=== PATIENT | female | born 1950 | race Two or more races ===

== ENCOUNTER 2023-08-04 14:12 | Inpatient (IN) | payer OTHER ==
[~2023-08-04] VITALS: Ht 152.4 cm; Wt 147.4 kg
[2023-08-04] MEDS ORDERED: NORVASC5 MG (14:29)
[2023-08-04] MEDS ORDERED: LYRICA150 MG (14:30)
[2023-08-04] MEDS ORDERED: CRESTOR10 MG (14:30)
[2023-08-04] MEDS ORDERED: METFORMIN HCL1000 M2 (14:30)
[2023-08-04] MEDS ORDERED: ZESTRIL10 M1 (14:30)
[2023-08-04 14:51] LABS: ABG PH 7.298 (7.35-7.45)
[2023-08-04 14:52] LABS: ABG PO2 38.8 mmHg (80-100); ABG pCO2 77.1 mmHg (35-45); BASE EXCESS 7.2 mmol/l; BICARBONATE 36.9 mmol/l (23-25); SaO2 67.8 %; Tco2 39.2 mmol/l; allen test SATISFACTORY; o2 21 %; puncture site RADIAL RIGHT
[2023-08-04 17:02] LABS: HEMATOCRIT 31.6 % (36.0-45.00); HEMOGLOBIN 9.9 g/dL (12.0-15.00); MEAN CELL VOLUME 81.9 fL (80.00-100.00); MEAN CORPUSCULAR HEMOGLOBIN 25.7 pg (27.00-32.0); MEAN CORPUSCULAR HGB CONC 31.4 g/dl (32.0-36.0); PLATELET COUNT 137 K/uL (150-450); RED BLOOD COUNT 3.86 M/uL (4.00-6.00)
[2023-08-04 17:18] LABS: INR 0.98; PARTIAL THROMBOPLASTIN TIME 24.3 SECONDS (22.0-34.0); PROTHROMBIN TIME 10.3 SECONDS (9.0-11.5)
[2023-08-04 17:25] LABS: ALBUMIN 2.8 gm/dL (3.4-5.0); BILIRUBIN TOTAL 0.25 mg/dL (0.3-1.2); CALCIUM 8.9 mg/dL (8.5-10.1); CREATININE SERUM 1.96 mg/dL (0.55-1.02); GFR 25.07; GLOBULINA 3.6 G/DL (2.4-3.5); POTASSIUM 5.61 mEq/L (3.5-5.1); TOTAL PROTEIN 6.4 gm/dL (6.4-8.2)
[2023-08-04 18:53] LABS: ABG PH 7.238 (7.35-7.45); ABG PO2 254.4 mmHg (80-100); ABG pCO2 89.7 mmHg (35-45); BASE EXCESS 6.2 mmol/l; BICARBONATE 37.4 mmol/l (23-25); SaO2 99.8 %; Tco2 40.2 mmol/l
[2023-08-04 18:54] LABS: o2 100 %; puncture site RADIAL RIGHT
[2023-08-04] MEDS ORDERED: MEROPENEM 500 MG/VIAL VIAL IV SCH (20:26)
[2023-08-04] MEDS ORDERED: PANTOPRAZOLE SODIUM 40 MG/VIAL VIAL IV SCH (20:27)
[2023-08-04] MEDS ORDERED: ENOXAPARIN SODIUM 100 MG/ML SYRINGE SUBCUTANEO SCH (20:28)
[2023-08-04] MEDS ORDERED: ONDANSETRON HCL 4 MG in 0.9 % SODIUM CHLORIDE 50 ML IV PRN (20:30)
[2023-08-04] MEDS ORDERED: ACETAMINOPHEN 500 MG GEL..CAP PO PRN (20:30)
[2023-08-04] MEDS ORDERED: DEXTROSE 50 % IN WATER 0.5 G/ML DISP.SYRIN IV PRN (20:30)
[2023-08-04] MEDS ORDERED: VANCOMYCIN HCL 1,000 MG VIAL IV ONE (20:30)
[2023-08-04] MEDS ORDERED: INSULIN LISPRO 1,000 UNIT/10 ML UNITS SUBCUTANEO PRN (20:30)
[2023-08-04] MEDS ORDERED: IPRATROPIUM BROMIDE 0.5 MG/2.5 ML AMPUL.NEB IH SCH (20:39)
[2023-08-04] MEDS ORDERED: METHYLPREDNISOLONE SOD SUCC 125 MG VIAL IV ONE (20:45)
[2023-08-04] MEDS ORDERED: 0.9 % SODIUM CHLORIDE 500 ML IV ONE (20:45)
[2023-08-04 21:59] LABS: ABG PH 7.247 (7.35-7.45); ABG PO2 107.9 mmHg (80-100); ABG pCO2 85.9 mmHg (35-45); BASE EXCESS 5.8 mmol/l; SaO2 97.2 %
[2023-08-04 22:00] LABS: BICARBONATE 36.6 mmol/l (23-25); Tco2 39.2 mmol/l; allen test NO SATISFACTORY; o2 60 %; puncture site RADIAL RIGHT
[2023-08-04 22:27] LABS: MAGNESIUM 1.8 mg/dL (1.8-2.4); PHOSPHOROUS 5.2 mg/dL (2.5-4.9)
[2023-08-05 01:42] LABS: ABG PH 7.238 (7.35-7.45); ABG PO2 178.6 mmHg (80-100); ABG pCO2 84.2 mmHg (35-45)
[2023-08-05 01:43] LABS: BASE EXCESS 4.4 mmol/l; BICARBONATE 35.1 mmol/l (23-25); SaO2 99.3 %; Tco2 37.7 mmol/l; allen test SATISFACTORY; o2 50 %; puncture site RADIAL RIGHT
[2023-08-05] MEDS ORDERED: 0.9 % SODIUM CHLORIDE 1,000 ML IV SCH (02:30)
[2023-08-05] MEDS ORDERED: ASCORBIC ACID 500 MG TABLET PO SCH (09:00)
[2023-08-05] MEDS ORDERED: DEXAMETHASONE SODIUM PHOSPHATE 4 MG/ML VIAL IV SCH (09:00)
[2023-08-05] MEDS ORDERED: ZINC SULFATE 220 MG CAPSULE PO SCH (09:00)
[2023-08-05] MEDS ORDERED: ENOXAPARIN SODIUM 30 MG/0.3 ML SYRINGE SUBCUTANEO SCH (09:00)
[2023-08-05] MEDS ORDERED: MEROPENEM 500 MG/VIAL VIAL IV SCH (09:00)
[2023-08-05 10:10] LABS: ABG PH 7.233 (7.35-7.45)
[2023-08-05 10:11] LABS: ABG pCO2 80.6 mmHg (35-45); SaO2 78.6 %
[2023-08-05 10:12] LABS: BASE EXCESS 2.8 mmol/l; BICARBONATE 33.3 mmol/l (23-25); Tco2 35.7 mmol/l; allen test SATISFACTORY; o2 50 %; puncture site RADIAL RIGHT
[2023-08-05 10:14] LABS: ABG PO2 51.3 mmHg (80-100)
[2023-08-05] MEDS ORDERED: MIDAZOLAM HCL 2 MG/2 ML VIAL IV PUSH STA (11:06)
[2023-08-05] MEDS ORDERED: MIDAZOLAM HCL 50 MG in 0.9 % SODIUM CHLORIDE 50 ML IV SCH (11:15)
[2023-08-05] MEDS ORDERED: CHLORHEXIDINE GLUCONATE 15ML BRUSH KIT MM SCH (11:51)
[2023-08-05] MEDS ORDERED: POLYVINYL ALCOHOL 15 ML DROPS OP SCH (11:52)
[2023-08-05] MEDS ORDERED: REMDESIVIR 100 MG VIAL IV NR (12:09)
[2023-08-05 15:26] LABS: ABG PH 7.562 (7.35-7.45); ABG PO2 258.5 mmHg (80-100); ABG pCO2 30.1 mmHg (35-45)
[2023-08-05 15:27] LABS: BICARBONATE 26.5 mmol/l (23-25); Tco2 27.4 mmol/l; allen test SATISFACTORY; o2 100 %; puncture site RADIAL RIGHT
[2023-08-05 15:29] LABS: SaO2 99.9 %
[2023-08-05 15:47] LABS: ALBUMIN 2.7 gm/dL (3.4-5.0); BILIRUBIN TOTAL 0.48 mg/dL (0.3-1.2); CALCIUM 8.5 mg/dL (8.5-10.1); CREATININE SERUM 1.86 mg/dL (0.55-1.02); GFR 26.63; GLOBULINA 2.9 G/DL (2.4-3.5); TOTAL PROTEIN 5.6 gm/dL (6.4-8.2)
[2023-08-05 16:01] LABS: C-REACTIVE PROTEIN 1.54 MG/DL (0.00-0.29)
[2023-08-05 16:02] LABS: POTASSIUM 6.27 mEq/L (3.5-5.1)
[2023-08-05] MEDS ORDERED: LACTOBACILLUS ACIDOPHILUS 1 CAP CAP PO SCH (17:00)
[2023-08-05] MEDS ORDERED: SODIUM POLYSTYRENE SULFONATE 15 G/4 TSP TSP PO SCH (18:00)
[2023-08-05 18:23] LABS: RH POSITIVE
[2023-08-05] MEDS ORDERED: LACTULOSE 20 G/30 ML BLIST.PACK PO STA (19:05)
[2023-08-05] MEDS ORDERED: MELATONIN 5 MG TABLET PO SCH (21:00)
[2023-08-06 06:50] LABS: PH,URINE 5.5 (5.0-8.0); URINE APPEARANCE Turbid; URINE BILIRRUBIN Small (NEGATIVE); URINE BLOOD Moderate; URINE COLOR Dark Yellow; URINE GLUCOSE Negative (NEGATIVE); URINE LEUKOCYTE Moderate; URINE NITRATE Negative; URINE UROBILINOGEN 0.2 E.U./dl
[2023-08-06 07:03] LABS: URINE BACTERIA > 9821.5 uL (0.0-1933); URINE CRYSTALS FEW /HPF; URINE EPITHELIAL CELLS > 201.7 uL (0.0-38.8); URINE PROTEIN 100 (NEGATIVE); URINE RBC > 10558.9 uL (0.0-20.8); URINE WBC > 5548.3 uL (0.0-23.2); URINE YEAST MANY /hpf
[2023-08-06 07:18] LABS: ALBUMIN 2.7 gm/dL (3.4-5.0); BILIRUBIN TOTAL 0.42 mg/dL (0.3-1.2); CALCIUM 8.6 mg/dL (8.5-10.1); CREATININE SERUM 1.71 mg/dL (0.55-1.02); GFR 29.34; MAGNESIUM 1.8 mg/dL (1.8-2.4); PHOSPHOROUS 3.4 mg/dL (2.5-4.9); POTASSIUM 5.28 mEq/L (3.5-5.1); TOTAL PROTEIN 5.7 gm/dL (6.4-8.2)
[2023-08-06 07:19] LABS: C-REACTIVE PROTEIN 2.26 MG/DL (0.00-0.29)
[2023-08-06 08:04] LABS: HEMATOCRIT 29.9 % (36.0-45.00); HEMOGLOBIN 9.5 g/dL (12.0-15.00); MEAN CELL VOLUME 79.1 fL (80.00-100.00); MEAN CORPUSCULAR HEMOGLOBIN 25.2 pg (27.00-32.0); MEAN CORPUSCULAR HGB CONC 31.8 g/dl (32.0-36.0); PLATELET COUNT 148 K/uL (150-450); RED BLOOD COUNT 3.77 M/uL (4.00-6.00)
[2023-08-06 08:05] LABS: RED CELL DISTRIBUTION WIDTH 26.3 % (11.5-14.5)
[2023-08-06 08:28] LABS: MYCOPLASMA PNEUMONIAE IGM NON REACTIVE (NO REACTIVE)
[2023-08-06 10:13] LABS: ABG PH 7.442 (7.35-7.45); ABG pCO2 43.9 mmHg (35-45); BASE EXCESS 4.5 mmol/l; BICARBONATE 29.3 mmol/l (23-25); SaO2 99.6 %; Tco2 30.6 mmol/l; o2 60 %
[2023-08-06 10:14] LABS: allen test SATISFACTORY; puncture site RADIAL LEFT
[2023-08-06] MEDS ORDERED: REMDESIVIR 100 MG VIAL IV SCH (14:00)
[2023-08-06] MEDS ORDERED: FLUCONAZOLE IN NACL,ISO-OSM 200 MG/100 ML PIGGYBAG IV ONE (17:00)
[2023-08-07 06:52] LABS: ABG PO2 155.5 mmHg (80-100); ABG pCO2 40.9 mmHg (35-45)
[2023-08-07 06:53] LABS: BASE EXCESS 3.5 mmol/l; BICARBONATE 27.8 mmol/l (23-25); Tco2 29.1 mmol/l; o2 50 %
[2023-08-07 06:54] LABS: allen test SATISFACTORY; puncture site RADIAL RIGHT
[2023-08-07 06:57] LABS: SaO2 99.5 %
[2023-08-07 10:17] LABS: HEMOGLOBIN 9.8 g/dL (12.0-15.00); MEAN CORPUSCULAR HEMOGLOBIN 26.1 pg (27.00-32.0); MEAN CORPUSCULAR HGB CONC 32.6 g/dl (32.0-36.0); PLATELET COUNT 138 K/uL (150-450); RED BLOOD COUNT 3.75 M/uL (4.00-6.00)
[2023-08-07 10:21] LABS: RED CELL DISTRIBUTION WIDTH 26.5 % (11.5-14.5)
[2023-08-07 10:59] LABS: ALBUMIN 2.6 gm/dL (3.4-5.0); BILIRUBIN TOTAL 0.36 mg/dL (0.3-1.2); CALCIUM 8.3 mg/dL (8.5-10.1); CREATININE SERUM 1.19 mg/dL (0.55-1.02); GFR 44.59; GLOBULINA 2.9 G/DL (2.4-3.5); MAGNESIUM 1.6 mg/dL (1.8-2.4); POTASSIUM 4.11 mEq/L (3.5-5.1); TOTAL PROTEIN 5.5 gm/dL (6.4-8.2)
[2023-08-07 11:00] LABS: FERRITIN 124.4 NG/ML (8-252)
[2023-08-07] MEDS ORDERED: CHLORHEXIDINE GLUCONATE 120 ML BOTTLE TOP ONE (11:12)
[2023-08-07] MEDS ORDERED: FLUCONAZOLE IN NACL,ISO-OSM 2 MG/ML ML IV SCH (17:00)
[2023-08-07] MEDS ORDERED: ENOXAPARIN SODIUM 30 MG/0.3 ML SYRINGE SUBCUTANEO SCH (21:00)
[2023-08-08 06:35] LABS: ABG PH 7.442 (7.35-7.45); ABG PO2 68.4 mmHg (80-100); ABG pCO2 40.8 mmHg (35-45); BASE EXCESS 2.9 mmol/l; BICARBONATE 27.2 mmol/l (23-25); Tco2 28.5 mmol/l; o2 40 %; puncture site RADIAL LEFT
[2023-08-08 06:36] LABS: allen test SATISFACTORY
[2023-08-08 06:37] LABS: SaO2 94.3 %
[2023-08-09 08:16] LABS: ABG PH 7.419 (7.35-7.45); ABG PO2 146.4 mmHg (80-100); ABG pCO2 42.5 mmHg (35-45); BASE EXCESS 2.1 mmol/l; BICARBONATE 26.9 mmol/l (23-25); SaO2 99.3 %; Tco2 28.2 mmol/l
[2023-08-09 08:17] LABS: allen test SATISFACTORY; o2 45 %; puncture site RADIAL RIGHT
[2023-08-09 09:48] LABS: FERRITIN 160.2 NG/ML (8-252)
[2023-08-09] MEDS ORDERED: FLUCONAZOLE IN NACL,ISO-OSM 200 MG/100 ML PIGGYBAG IV SCH (17:00)
[2023-08-09] MEDS ORDERED: ENOXAPARIN SODIUM 100 MG/ML SYRINGE SUBCUTANEO SCH (21:00)
[2023-08-10 06:53] LABS: HEMATOCRIT 26.7 % (36.0-45.00); MEAN CELL VOLUME 78.4 fL (80.00-100.00); MEAN CORPUSCULAR HGB CONC 32.9 g/dl (32.0-36.0); PLATELET COUNT 139 K/uL (150-450); RED BLOOD COUNT 3.41 M/uL (4.00-6.00)
[2023-08-10 06:57] LABS: MEAN CORPUSCULAR HEMOGLOBIN 25.8 pg (27.00-32.0)
[2023-08-10 06:58] LABS: HEMOGLOBIN 8.8 g/dL (12.0-15.00)
[2023-08-10 07:06] LABS: PH,URINE 5.5 (5.0-8.0); URINE APPEARANCE Turbid; URINE BILIRRUBIN Negative (NEGATIVE); URINE BLOOD Large; URINE COLOR Yellow; URINE GLUCOSE Negative (NEGATIVE); URINE LEUKOCYTE Moderate; URINE NITRATE Negative; URINE PROTEIN Trace (NEGATIVE)
[2023-08-10 07:11] LABS: URINE BACTERIA 212.9 uL (0.0-1933); URINE EPITHELIAL CELLS 168.8 uL (0.0-38.8); URINE RBC 2777.9 uL (0.0-20.8); URINE WBC 1523.1 uL (0.0-23.2)
[2023-08-10 07:17] LABS: ALBUMIN 2.1 gm/dL (3.4-5.0); BILIRUBIN TOTAL 0.56 mg/dL (0.3-1.2); C-REACTIVE PROTEIN 0.44 MG/DL (0.00-0.29); CALCIUM 7.8 mg/dL (8.5-10.1); CREATININE SERUM 0.78 mg/dL (0.55-1.02); GFR 72.6; GLOBULINA 2.5 G/DL (2.4-3.5); MAGNESIUM 1.5 mg/dL (1.8-2.4); PHOSPHOROUS 2.8 mg/dL (2.5-4.9); POTASSIUM 3.23 mEq/L (3.5-5.1); TOTAL PROTEIN 4.6 gm/dL (6.4-8.2)
[2023-08-10 07:46] LABS: URINE CRYSTALS MANY /HPF; URINE YEAST MANY /hpf
[2023-08-10 08:28] LABS: ABG PH 7.409 (7.35-7.45); ABG PO2 63.6 mmHg (80-100); ABG pCO2 43.6 mmHg (35-45)
[2023-08-10 08:29] LABS: SaO2 92.3 %; Tco2 28.3 mmol/l; allen test SATISFACTORY; o2 50 %; puncture site RADIAL LEFT
[2023-08-10] MEDS ORDERED: FUROsemide 20 MG/2 ML VIAL IV SCH (16:15)
[2023-08-10] MEDS ORDERED: MAGNESIUM SULFATE/D5W 100 ML IV ONE (16:15)
[2023-08-10] MEDS ORDERED: POTASSIUM CHLORIDE 20MEQ/100ML H2O PB IV ONE (16:15)
[2023-08-11 04:37] LABS: ob NEGATIVE (NEGATIVE)
[2023-08-11] MEDS ORDERED: ALBUTEROL SULFATE 3 ML/2.5 MG AMPUL.NEB IH ONE (10:21)
[2023-08-11] MEDS ORDERED: RACEPINEPHRINE HCL 0.5 ML AMPUL IH ONE (10:21)
[2023-08-11 10:49] LABS: ABG PO2 100.1 mmHg (80-100); ABG pCO2 43.8 mmHg (35-45)
[2023-08-11 10:50] LABS: BASE EXCESS 0.7 mmol/l; SaO2 97.7 %; Tco2 27.3 mmol/l; allen test SATISFACTORY; puncture site RADIAL RIGHT
[2023-08-11 10:51] LABS: o2 40 %
[2023-08-11 12:25] LABS: ABG PH 7.358 (7.35-7.45); ABG PO2 84.7 mmHg (80-100); ABG pCO2 44.8 mmHg (35-45); BASE EXCESS -1.1 mmol/l; BICARBONATE 24.6 mmol/l (23-25); SaO2 95.8 %; allen test SATISFACTORY; o2 50 %; puncture site RADIAL RIGHT
[2023-08-12 02:06] LABS: HEMATOCRIT 40.6 % (36.0-45.00); MEAN CELL VOLUME 81.3 fL (80.00-100.00); MEAN CORPUSCULAR HGB CONC 32.8 g/dl (32.0-36.0); PLATELET COUNT 190 K/uL (150-450); RED BLOOD COUNT 4.99 M/uL (4.00-6.00)
[2023-08-12 02:07] LABS: HEMOGLOBIN 13.3 g/dL (12.0-15.00); MEAN CORPUSCULAR HEMOGLOBIN 26.6 pg (27.00-32.0); RED CELL DISTRIBUTION WIDTH 24.5 % (11.5-14.5)
[2023-08-12 07:56] LABS: ALBUMIN 2.6 gm/dL (3.4-5.0); BILIRUBIN TOTAL 0.93 mg/dL (0.3-1.2); CALCIUM 8.5 mg/dL (8.5-10.1); CREATININE SERUM 0.8 mg/dL (0.55-1.02); GFR 70.51; MAGNESIUM 1.6 mg/dL (1.8-2.4); PHOSPHOROUS 2.8 mg/dL (2.5-4.9); POTASSIUM 3.67 mEq/L (3.5-5.1); TOTAL PROTEIN 5.6 gm/dL (6.4-8.2)
[2023-08-12] MEDS ORDERED: MAGNESIUM SULFATE 1,000 MG in 0.9 % SODIUM CHLORIDE 50 ML IV ONE (18:15)
[2023-08-12] MEDS ORDERED: Pregabalin 50 MG CAPSULE PO SCH (21:00)
[2023-08-13] MEDS ORDERED: ONDANSETRON HCL 2 MG/ML VIAL IV ONE (06:30)
[2023-08-14 08:24] LABS: ALKALINE PHOSPHATASE 50 U/L (50-136); ALT/SGPT 16 U/L (12-78); AST/SGOT 11 U/L (15-37); BILIRUBIN TOTAL 0.77 mg/dL (0.3-1.2); BLOOD UREA NITROGEN 35 mg/dL (7-18); BUN CREA RATIO 52 (7.0-25.0); CALCIUM 7.7 mg/dL (8.5-10.1); CARBON DIOXIDE 26 mEq/L (21-32); CREATININE SERUM 0.67 mg/dL (0.55-1.02); GFR 86.52; GLOBULINA 2.3 G/DL (2.4-3.5); GLUCOSE FASTING 81 mg/dL (65-100); OSMOLALITY SERUM 303 MOSM/KG (275-295); PHOSPHOROUS 2.9 mg/dL (2.5-4.9); POTASSIUM 3.52 mEq/L (3.5-5.1); TOTAL PROTEIN 4.3 gm/dL (6.4-8.2)
[2023-08-14 08:25] LABS: ANION GAP 11 (10.0-20.0)
[2023-08-14 08:26] LABS: CHLORIDE 116 mmol/L (98-107); SODIUM 149 mmol/L (136-145)
[2023-08-14 11:45] LABS: HEMATOCRIT 36.9 % (36.0-45.00); HEMOGLOBIN 11.8 g/dL (12.0-15.00); MEAN CELL VOLUME 84.2 fL (80.00-100.00); MEAN CORPUSCULAR HGB CONC 32.1 g/dl (32.0-36.0); PLATELET COUNT 194 K/uL (150-450); RED BLOOD COUNT 4.38 M/uL (4.00-6.00); RED CELL DISTRIBUTION WIDTH 24.5 % (11.5-14.5)
[2023-08-14 15:18] LABS: C-REACTIVE PROTEIN < 0.29 MG/DL (0.00-0.29)
[2023-08-14] MEDS ORDERED: APIXABAN 5 MG TABLET PO SCH (21:00)
[2023-08-16 06:41] LABS: HEMATOCRIT 31.7 % (36.0-45.00); HEMOGLOBIN 10.5 g/dL (12.0-15.00); MEAN CELL VOLUME 83.6 fL (80.00-100.00); MEAN CORPUSCULAR HEMOGLOBIN 27.6 pg (27.00-32.0); PLATELET COUNT 177 K/uL (150-450); RED CELL DISTRIBUTION WIDTH 24.5 % (11.5-14.5)
[2023-08-16 07:55] LABS: ALBUMIN 1.9 gm/dL (3.4-5.0); BILIRUBIN TOTAL 0.74 mg/dL (0.3-1.2); CALCIUM 7.8 mg/dL (8.5-10.1); CREATININE SERUM 0.57 mg/dL (0.55-1.02); GFR 104.26; GLOBULINA 2.1 G/DL (2.4-3.5); MAGNESIUM 1.5 mg/dL (1.8-2.4); PHOSPHOROUS 2.2 mg/dL (2.5-4.9); POTASSIUM 3.42 mEq/L (3.5-5.1)
[2023-08-16] MEDS ORDERED: AMINO ACIDS/PROTEIN HYDROLYS 30 ML BLIST.PACK PO SCH (09:00)
[2023-08-16] MEDS ORDERED: ALBUMIN HUMAN 0.25GM/ML (50ML) VIAL IV SCH (09:00)
[2023-08-16] MEDS ORDERED: FUROsemide 40 MG/4 ML VIAL IV STA (20:38)
[2023-08-16] MEDS ORDERED: NITROGLYCERIN 0.4 MG TAB.SUBL SL SCH (20:45)
[2023-08-16] MEDS ORDERED: NITROGLYCERIN IN 5 % DEXTROSE 250 ML IV SCH (20:45)
[2023-08-16] MEDS ORDERED: POTASSIUM PHOS,M-BASIC-D-BASIC 18 MM in 0.9 % SODIUM CHLORIDE 250 ML IV ONE (21:00)
[2023-08-16] MEDS ORDERED: MAGNESIUM SULFATE 1,000 MG in 0.9 % SODIUM CHLORIDE 50 ML IV ONE (21:00)
[2023-08-16] MEDS ORDERED: FUROsemide 40 MG/4 ML VIAL IV SCH (21:00)
[2023-08-16 23:44] LABS: CKMB 1.4 NG/ML (0.5-3.6)
[2023-08-17 07:23] LABS: CKMB 1.5 NG/ML (0.5-3.6)
[2023-08-17 13:23] LABS: HEMATOCRIT 30.7 % (36.0-45.00); MEAN CELL VOLUME 83.6 fL (80.00-100.00); MEAN CORPUSCULAR HEMOGLOBIN 27.3 pg (27.00-32.0); MEAN CORPUSCULAR HGB CONC 32.7 g/dl (32.0-36.0); PLATELET COUNT 177 K/uL (150-450); RED BLOOD COUNT 3.68 M/uL (4.00-6.00); RED CELL DISTRIBUTION WIDTH 24.1 % (11.5-14.5)
[2023-08-17 13:50] LABS: INR 1.09; PARTIAL THROMBOPLASTIN TIME 31.6 SECONDS (22.0-34.0); PROTHROMBIN TIME 11.4 SECONDS (9.0-11.5)
[2023-08-17 13:51] LABS: CKMB 1.6 NG/ML (0.5-3.6)
[2023-08-17] MEDS ORDERED: FLUCONAZOLE IN NACL,ISO-OSM 200 MG/100 ML PIGGYBAG IV SCH (17:00)
[2023-08-18 07:03] LABS: BILIRUBIN TOTAL 0.61 mg/dL (0.3-1.2); CALCIUM 7.7 mg/dL (8.5-10.1); CREATININE SERUM 0.63 mg/dL (0.55-1.02); GFR 92.89; GLOBULINA 2.1 G/DL (2.4-3.5); POTASSIUM 3.35 mEq/L (3.5-5.1); TOTAL PROTEIN 4.1 gm/dL (6.4-8.2)
[2023-08-18 08:09] LABS: MAGNESIUM 1.3 mg/dL (1.8-2.4)
[2023-08-18] MEDS ORDERED: POTASSIUM CHLORIDE 20MEQ/100ML H2O PB IV ONE (15:15)
[2023-08-18] MEDS ORDERED: MAGNESIUM SULFATE IN WATER 4 GM/100 ML PIGGYBACK IV ONE (15:15)
[2023-08-18] MEDS ORDERED: DEXTROSE 5 % IN WATER 1,000 ML IV SCH (15:15)
[2023-08-19 08:16] LABS: HEMOGLOBIN 9.2 g/dL (12.0-15.00); MEAN CELL VOLUME 83.2 fL (80.00-100.00); MEAN CORPUSCULAR HEMOGLOBIN 27.5 pg (27.00-32.0); PLATELET COUNT 142 K/uL (150-450); RED BLOOD COUNT 3.36 M/uL (4.00-6.00); RED CELL DISTRIBUTION WIDTH 24.1 % (11.5-14.5)
[2023-08-19 08:45] LABS: BILIRUBIN TOTAL 0.65 mg/dL (0.3-1.2); CALCIUM 7.7 mg/dL (8.5-10.1); CREATININE SERUM 0.53 mg/dL (0.55-1.02); GFR 113.39; GLOBULINA 2.3 G/DL (2.4-3.5); MAGNESIUM 1.6 mg/dL (1.8-2.4); POTASSIUM 3.16 mEq/L (3.5-5.1); TOTAL PROTEIN 4.3 gm/dL (6.4-8.2)
[2023-08-19 08:54] LABS: PHOSPHOROUS 1.6 mg/dL (2.5-4.9)
[2023-08-19] MEDS ORDERED: ACETAZOLAMIDE 250 MG TABLET PO SCH (14:54)
[2023-08-19] MEDS ORDERED: SPIRONOLACTONE 25 MG TABLET PO SCH (14:54)
[2023-08-19] MEDS ORDERED: POTASSIUM CHLORIDE IN WATER 40 MEQ/100 ML PIGGYBAG IV SCH (15:00)
[2023-08-19] MEDS ORDERED: MAGNESIUM SULFATE IN WATER 50 ML IV ONE (15:15)
[2023-08-19] MEDS ORDERED: POTASSIUM PHOS,M-BASIC-D-BASIC 18 MM in 0.9 % SODIUM CHLORIDE 250 ML IV ONE (15:15)
[2023-08-19 20:49] LABS: PLEURAL FLUID APPEARANCE HAZY; PLEURAL FLUID COLOR YELLOW
[2023-08-19 21:05] LABS: TP PLEURAL FLUID 1.6 g/dl
[2023-08-19 21:39] LABS: MONONUCLEAR 94 %; POLYMORPHONUCLEAR 6 %
[2023-08-20] MEDS ORDERED: PANTOPRAZOLE SODIUM 40 MG TABLET.DR PO SCH (09:00)
[2023-08-20] MEDS ORDERED: MAGNESIUM SULFATE IN WATER 2 GM/50 ML PIGGYBAG IV ONE (14:30)
[2023-08-20] MEDS ORDERED: POTASSIUM PHOS,M-BASIC-D-BASIC 3 MM/ML VIAL IV ONE (14:30)
[2023-08-20] MEDS ORDERED: MAGNESIUM SULFATE 50% 1,000 MG/2 ML VIAL IV ONE (14:30)
[2023-08-20] MEDS ORDERED: POTASSIUM PHOS,M-BASIC-D-BASIC 3 MM/ML VIAL IV SCH (14:30)
[2023-08-21 07:38] LABS: ALBUMIN 1.9 gm/dL (3.4-5.0); BILIRUBIN TOTAL 0.5 mg/dL (0.3-1.2); CALCIUM 7.6 mg/dL (8.5-10.1); CREATININE SERUM 0.61 mg/dL (0.55-1.02); GFR 96.41; GLOBULINA 2.4 G/DL (2.4-3.5); POTASSIUM 3.5 mEq/L (3.5-5.1); TOTAL PROTEIN 4.3 gm/dL (6.4-8.2)
[2023-08-21] MEDS ORDERED: APIXABAN 5 MG TABLET PO SCH (21:00)
[2023-08-22] MEDS ORDERED: HYDROCODONE/CHLORPHEN P-STIREX 5 ML ML PO SCH (18:03)
[2023-08-22] MEDS ORDERED: LINEZOLID IN DEXTROSE 5% 300 ML IV SCH (18:04)
[2023-08-23 08:21] LABS: HEMATOCRIT 28.8 % (36.0-45.00); HEMOGLOBIN 9.2 g/dL (12.0-15.00); MEAN CELL VOLUME 83.8 fL (80.00-100.00); MEAN CORPUSCULAR HEMOGLOBIN 26.7 pg (27.00-32.0); MEAN CORPUSCULAR HGB CONC 31.9 g/dl (32.0-36.0); PLATELET COUNT 131 K/uL (150-450); RED BLOOD COUNT 3.44 M/uL (4.00-6.00); RED CELL DISTRIBUTION WIDTH 23.1 % (11.5-14.5)
[2023-08-23] MEDS ORDERED: AMINO ACIDS/PROTEIN HYDROLYS 30 ML BLIST.PACK PO SCH (09:00)
[2023-08-24 06:37] LABS: HEMATOCRIT 26.8 % (36.0-45.00); MEAN CORPUSCULAR HEMOGLOBIN 27.5 pg (27.00-32.0); MEAN CORPUSCULAR HGB CONC 33.1 g/dl (32.0-36.0); PLATELET COUNT 134 K/uL (150-450); RED BLOOD COUNT 3.23 M/uL (4.00-6.00); RED CELL DISTRIBUTION WIDTH 21.8 % (11.5-14.5)
[2023-08-24 06:42] LABS: HEMOGLOBIN 8.9 g/dL (12.0-15.00)
[2023-08-24 07:07] LABS: ALBUMIN 2.1 gm/dL (3.4-5.0); BILIRUBIN TOTAL 0.6 mg/dL (0.3-1.2); CALCIUM 8.6 mg/dL (8.5-10.1); CREATININE SERUM 0.75 mg/dL (0.55-1.02); GFR 75.96; GLOBULINA 2.9 G/DL (2.4-3.5); MAGNESIUM 1.6 mg/dL (1.8-2.4); PHOSPHOROUS 3.4 mg/dL (2.5-4.9)
[2023-08-24] MEDS ORDERED: MAGNESIUM SULFATE 1,000 MG in 0.9 % SODIUM CHLORIDE 50 ML IV ONE (20:30)
[2023-08-24] MEDS ORDERED: LINEZOLID 600 MG TABLET PO SCH (21:00)
[2023-08-25 07:33] LABS: HEMATOCRIT 27.4 % (36.0-45.00); HEMOGLOBIN 8.9 g/dL (12.0-15.00); MEAN CELL VOLUME 83.5 fL (80.00-100.00); MEAN CORPUSCULAR HEMOGLOBIN 27.1 pg (27.00-32.0); MEAN CORPUSCULAR HGB CONC 32.6 g/dl (32.0-36.0); PLATELET COUNT 140 K/uL (150-450); RED BLOOD COUNT 3.28 M/uL (4.00-6.00); RED CELL DISTRIBUTION WIDTH 21.3 % (11.5-14.5)
[2023-08-25 07:48] LABS: CALCIUM 8.9 mg/dL (8.5-10.1); CREATININE SERUM 0.7 mg/dL (0.55-1.02); GFR 82.25; MAGNESIUM 1.8 mg/dL (1.8-2.4); PHOSPHOROUS 3.6 mg/dL (2.5-4.9); POTASSIUM 4.28 mEq/L (3.5-5.1)
[2023-08-25 13:29] LABS: PH,URINE 7.5 (5.0-8.0); URINE APPEARANCE Clear; URINE BILIRRUBIN Negative (NEGATIVE); URINE COLOR Yellow; URINE GLUCOSE Negative (NEGATIVE); URINE LEUKOCYTE Moderate; URINE NITRATE Negative; URINE PROTEIN Negative (NEGATIVE); URINE UROBILINOGEN 0.2 E.U./dl
[2023-08-25 13:34] LABS: URINE RBC 124.3 uL (0.0-20.8); URINE WBC 103.2 uL (0.0-23.2)
[2023-08-25 14:35] LABS: URINE BLOOD TRACE
[2023-08-25 14:37] LABS: URINE YEAST MODERATE /hpf
[2023-08-25] MEDS ORDERED: FUROsemide 20 MG/2 ML VIAL IV SCH (15:30)
[2023-08-25] MEDS ORDERED: MEROPENEM 500 MG/VIAL VIAL IV SCH (18:00)
[2023-08-26] MEDS ORDERED: LACTULOSE 20 G/30 ML BLIST.PACK PO ONE (12:15)
[2023-08-26] MEDS ORDERED: MINERAL OIL 30 ML BLIST.PACK PO ONE (12:15)
[2023-08-26] MEDS ORDERED: MAGNESIUM HYDROXIDE 30 ML BLIST.PACK PO ONE (12:15)
[2023-08-26] MEDS ORDERED: MEROPENEM 1,000 MG VIAL IV SCH (18:00)
[2023-08-26] MEDS ORDERED: FUROsemide 20 MG/2 ML VIAL IV SCH (21:00)
[2023-08-27 06:14] LABS: HEMATOCRIT 30.5 % (36.0-45.00); HEMOGLOBIN 10.3 g/dL (12.0-15.00); MEAN CORPUSCULAR HEMOGLOBIN 28.9 pg (27.00-32.0); MEAN CORPUSCULAR HGB CONC 33.6 g/dl (32.0-36.0); PLATELET COUNT 144 K/uL (150-450); RED BLOOD COUNT 3.55 M/uL (4.00-6.00); RED CELL DISTRIBUTION WIDTH 19.4 % (11.5-14.5)
[2023-08-27] MEDS ORDERED: CIPROFLOXACIN IN 5 % DEXTROSE 400 MG/200 ML PIGGYBAG IV SCH (17:00)
[2023-08-30 06:24] LABS: URINE APPEARANCE Clear; URINE BILIRRUBIN Negative (NEGATIVE); URINE BLOOD Negative; URINE COLOR Yellow; URINE GLUCOSE Negative (NEGATIVE); URINE LEUKOCYTE Small; URINE NITRATE Negative; URINE PROTEIN Negative (NEGATIVE)
[2023-08-30 06:27] LABS: URINE EPITHELIAL CELLS 1.8 uL (0.0-38.8); URINE WBC 21.9 uL (0.0-23.2)
[2023-08-30 06:49] LABS: URINE YEAST FEW /hpf
[2023-08-30] MEDS ORDERED: MEPERIDINE HCL/PF 50 MG/ML VIAL IV STA (10:31)
[2023-08-30] MEDS ORDERED: ACETAMINOPHEN 500 MG GEL..CAP PO SCH (14:00)
[2023-08-30] MEDS ORDERED: Pregabalin 50 MG CAPSULE PO SCH (17:00)
[2023-08-30] MEDS ORDERED: MEPERIDINE HCL/PF 50 MG/ML VIAL IV PRN (20:45)
[2023-08-31 06:48] LABS: HEMOGLOBIN 10.3 g/dL (12.0-15.00); MEAN CELL VOLUME 84.7 fL (80.00-100.00); MEAN CORPUSCULAR HEMOGLOBIN 28.2 pg (27.00-32.0); MEAN CORPUSCULAR HGB CONC 33.3 g/dl (32.0-36.0); PLATELET COUNT 235 K/uL (150-450); RED BLOOD COUNT 3.66 M/uL (4.00-6.00); RED CELL DISTRIBUTION WIDTH 18.6 % (11.5-14.5)
[2023-08-31 07:19] LABS: ALBUMIN 2.1 gm/dL (3.4-5.0); BILIRUBIN TOTAL 0.69 mg/dL (0.3-1.2); CREATININE SERUM 0.61 mg/dL (0.55-1.02); GFR 96.41; GLOBULINA 3.4 G/DL (2.4-3.5); MAGNESIUM 1.6 mg/dL (1.8-2.4); PHOSPHOROUS 3.4 mg/dL (2.5-4.9); POTASSIUM 4.73 mEq/L (3.5-5.1); TOTAL PROTEIN 5.5 gm/dL (6.4-8.2)
[2023-08-31] MEDS ORDERED: ATENOLOL 25 MG TABLET PO SCH (10:05)
[2023-08-31] MEDS ORDERED: MAGNESIUM SULFATE/D5W 100 ML IV ONE (10:15)
[2023-09-02] MEDS ORDERED: ATENOLOL25 MG PO (18:00)
[2023-09-02] MEDS ORDERED: CIPRO500 MG PO (18:00)
[2023-09-02] MEDS ORDERED: ELIQUIS5 MG PO (18:00)
[2023-09-02] MEDS ORDERED: BENZONATATE200 M1 PO (18:00)
[2023-09-02] MEDS ORDERED: FUROSEMIDE20 MG PO (18:00)
[2023-09-02] MEDS ORDERED: PANTOPRAZOLE SO40 MG PO (18:00)
== END 2023-09-02 17:11 | disposition home or self-care (01) | DRG 871 ==
LOC: ER 14:12 → ICU-2 20:56 → ICU 08-05 17:42 → MEDJ 08-15 19:10
PROVIDERS: Emergency Medicine; General Practice; Internal Medicine; Internal Medicine Infectious Disease; Internal Medicine Nephrology; ADMIT Internal Medicine; ATTEND Internal Medicine
PROC: B246ZZZ Ultrasonography of Right and Left Heart (ICD-10-PCS; principal; 2023-08-04)
PROC: B54DZZZ Ultrasonography of Bilateral Lower Extremity Veins (ICD-10-PCS; 2023-08-04)
PROC: 4A12X4Z Monitoring of Cardiac Electrical Activity, External Approach (ICD-10-PCS; 2023-08-04)
PROC: XW033E5 Introduction of Remdesivir Anti-infective into Peripheral Vein, Percutaneous Approach, New Technology Group 5 (ICD-10-PCS; 2023-08-05)
PROC: 0BH17EZ Insertion of Endotracheal Airway into Trachea, Via Natural or Artificial Opening (ICD-10-PCS; 2023-08-05)
PROC: 5A1945Z Respiratory Ventilation, 24-96 Consecutive Hours (ICD-10-PCS; 2023-08-05)
PROC: 3E0F7GC Introduction of Other Therapeutic Substance into Respiratory Tract, Via Natural or Artificial Opening (ICD-10-PCS; 2023-08-06)
PROC: 30233N1 Transfusion of Nonautologous Red Blood Cells into Peripheral Vein, Percutaneous Approach (ICD-10-PCS; 2023-08-10)
PROC: 0DH67UZ Insertion of Feeding Device into Stomach, Via Natural or Artificial Opening (ICD-10-PCS; 2023-08-11)
PROC: 3E0G76Z Introduction of Nutritional Substance into Upper GI, Via Natural or Artificial Opening (ICD-10-PCS; 2023-08-11)
PROC: 0BP1XDZ Removal of Intraluminal Device from Trachea, External Approach (ICD-10-PCS; 2023-08-11)
PROC: B54NZZZ Ultrasonography of Left Upper Extremity Veins (ICD-10-PCS; 2023-08-15)
PROC: BL41ZZZ Ultrasonography of Lower Extremity Connective Tissue (ICD-10-PCS; 2023-08-17)
PROC: 0W993ZZ Drainage of Right Pleural Cavity, Percutaneous Approach (ICD-10-PCS; 2023-08-19)
PROC: 0W9B3ZZ Drainage of Left Pleural Cavity, Percutaneous Approach (ICD-10-PCS; 2023-08-20)
DX: A41.9 Sepsis, unspecified organism (principal); J96.02 Acute respiratory failure with hypercapnia; B37.49 Other urogenital candidiasis; E66.2 Morbid (severe) obesity with alveolar hypoventilation; N17.9 Acute kidney failure, unspecified; J90 Pleural effusion, not elsewhere classified; E87.0 Hyperosmolality and hypernatremia; E87.3 Alkalosis; L03.116 Cellulitis of left lower limb; I82.493 Acute embolism and thrombosis of other specified deep vein of lower extremity, bilateral; C50.919 Malignant neoplasm of unspecified site of unspecified female breast; S70.12XA Contusion of left thigh, initial encounter; L72.8 Other follicular cysts of the skin and subcutaneous tissue; Z20.822 Contact with and (suspected) exposure to COVID-19; M79.622 Pain in left upper arm; E87.5 Hyperkalemia; B96.1 Klebsiella pneumoniae [K. pneumoniae] as the cause of diseases classified elsewhere; G72.89 Other specified myopathies; R60.0 Localized edema; D64.89 Other specified anemias; K59.00 Constipation, unspecified; M54.10 Radiculopathy, site unspecified; I27.20 Pulmonary hypertension, unspecified; I12.9 Hypertensive chronic kidney disease with stage 1 through stage 4 chronic kidney disease, or unspecified chronic kidney disease; E11.22 Type 2 diabetes mellitus with diabetic chronic kidney disease; N18.9 Chronic kidney disease, unspecified; Z79.84 Long term (current) use of oral hypoglycemic drugs; Z74.01 Bed confinement status; Z90.13 Acquired absence of bilateral breasts and nipples

== ENCOUNTER 2023-10-23 23:10 | Inpatient (IN) | payer OTHER ==
[~2023-10-23] VITALS: Ht 160 cm; Wt 151.0 kg
[~2023-10-23 23:10] MED LIST: ATENOLOL25 MG PO; BENZONATATE200 M1 PO; CIPRO500 MG PO; CRESTOR10 MG; ELIQUIS5 MG PO; FUROSEMIDE20 MG PO; LYRICA150 MG; METFORMIN HCL1000 M2; NORVASC5 MG; PANTOPRAZOLE SO40 MG PO; ZESTRIL10 M1
--- NOTE | 2023-10-23 23:14 | NUR ---
SE RECIBE PTE FEMENINA ALERTA Y ORIENTADA EN COMPANIA DE HIJA EN AMBULANCIA QUIEN REFIERE DIFICULTAD RESPIRATORIOA Y TOS DESDE HACE VARIOS OROZCO. AL MOMENTO DE TRIAGE PTE CON CANULA NASAL A 3LT/MIN COLOCADO POR PARAMEDICOS PRESENTANDO SATURACION DE O2 MANUAL AL 98%. SE REALIZA EKG Y SE PRESENTA A . SE UBICA EN AREA DE OBSERVACION PARA EVALUACION MEDICA.
[2023-10-24] MEDS ORDERED: AZITHROMYCIN 500 MG VIAL IV ONE (01:00)
[2023-10-24] MEDS ORDERED: LEVALBUTEROL HCL 1.25 MG/3 ML SOLUTION IH SCH (01:00)
--- NOTE | 2023-10-24 01:24 | NUR ---
SE EDCUA A PTE SOBRE TX MEDICO ESTA REFIERE ENTENDER, SE COLOCA H/L ISAURA DEEDEMA A PTE, SE COLOCA MEDICAMENTO IV EL CUAL PTE TOLERA. SE NOTIFICAN ABGS Y TERAPIAS PENDIENTES A PERSONAL DE TERAPIA RESPIRATORIA. SE NOTIFICA RX PENDIENTE A REALIZAR.
[2023-10-24 02:02] LABS: HEMATOCRIT 28.7 % (36.0-45.00); HEMOGLOBIN 9.3 g/dL (12.0-15.00); MEAN CELL VOLUME 87.6 fL (80.00-100.00); MEAN CORPUSCULAR HEMOGLOBIN 28.3 pg (27.00-32.0); MEAN CORPUSCULAR HGB CONC 32.4 g/dl (32.0-36.0); PLATELET COUNT 216 K/uL (150-450); RED BLOOD COUNT 3.28 M/uL (4.00-6.00); RED CELL DISTRIBUTION WIDTH 15.9 % (11.5-14.5)
[2023-10-24 02:04] LABS: ABG PH 7.428 (7.35-7.45); ABG PO2 89.2 mmHg (80-100); ABG pCO2 54.5 mmHg (35-45); BASE EXCESS 8.9 mmol/l; BICARBONATE 35.2 mmol/l (23-25); SaO2 97.3 %; Tco2 36.9 mmol/l; allen test SATISFACTORY; puncture site RADIAL LEFT
[2023-10-24 02:05] LABS: o2 21 %
[2023-10-24 02:25] LABS: ALBUMIN 2.3 gm/dL (3.4-5.0); BILIRUBIN TOTAL 0.44 mg/dL (0.3-1.2); CREATININE SERUM 1.05 mg/dL (0.55-1.02); GFR 51.52; GLOBULINA 4.2 G/DL (2.4-3.5); POTASSIUM 3.1 mEq/L (3.5-5.1); TOTAL PROTEIN 6.5 gm/dL (6.4-8.2)
--- NOTE | 2023-10-24 07:41 | NUR ---
FEMINA ALERTA Y ORIENTADA X3 EN DORIS POSICION MAS BAJA Y BARANDAS ELEVADAS POR SEGURIDAD. PTE CONECTADA A MONITOR CARDIACO Y OXIMETRIA DE PULSO. PTE CONSULTADA CON DR SCHWARZ.
--- NOTE | 2023-10-24 10:19 | NUR ---
SE ORIENTA PTE Y FAMILIAR SOBRE TX A SEGUIR, LA MISMA REFIERE ENTENDER. SE INSERTA PEDRAZA BAJO MEDIDAS ESTERILES
[2023-10-24] MEDS ORDERED: levoFLOXacin IN DEXTROSE 5 % 150 ML IV SCH (11:20)
[2023-10-24] MEDS ORDERED: ATENOLOL 25 MG TABLET PO SCH (11:20)
[2023-10-24] MEDS ORDERED: FUROsemide 20 MG/2 ML VIAL IV SCH (11:20)
[2023-10-24] MEDS ORDERED: Pregabalin 50 MG CAPSULE PO SCH (11:21)
[2023-10-24] MEDS ORDERED: APIXABAN 5 MG TABLET PO SCH (11:21)
[2023-10-24] MEDS ORDERED: FAMOTIDINE/PF 20 MG/2 ML VIAL IV SCH (11:22)
[2023-10-24] MEDS ORDERED: ACETAMINOPHEN 325 MG TABLET PO PRN (11:30)
[2023-10-24] MEDS ORDERED: LEVALBUTEROL HCL 0.63 MG/3 ML SOLUTION IH SCH (13:00)
[2023-10-24] MEDS ORDERED: BENZONATATE 100 MG CAPSULE PO SCH (13:00)
[2023-10-24] MEDS ORDERED: GUAIFENESIN 200 MG/10 ML BLIST.PACK PO SCH (13:00)
[2023-10-24] MEDS ORDERED: SIMVASTATIN 20 MG TABLET PO SCH (17:00)
[2023-10-24] MEDS ORDERED: BENZONATATE 200 MG CAPSULE PO SCH (17:00)
[2023-10-24] MEDS ORDERED: REMDESIVIR 100 MG VIAL IV ONE (20:00)
[2023-10-24 23:33] LABS: FERRITIN 266.9 NG/ML (8-252)
[2023-10-25] LABS: C-REACTIVE PROTEIN 7.73 MG/DL (0.00-0.29)
[2023-10-25] MEDS ORDERED: Pregabalin 50 MG CAPSULE PO SCH (09:00)
[2023-10-25] MEDS ORDERED: REMDESIVIR 100 MG VIAL IV SCH (17:00)
[2023-10-26] MEDS ORDERED: FAMOtidine 20 MG TABLET PO SCH (17:00)
[2023-10-26] MEDS ORDERED: INSULIN LISPRO 1,000 UNIT/10 ML UNITS SUBCUTANEO PRN (22:15)
[2023-10-26] MEDS ORDERED: DEXTROSE 50 % IN WATER 0.5 G/ML DISP.SYRIN IV PRN (22:15)
[2023-10-27 06:23] LABS: HEMATOCRIT 27.6 % (36.0-45.00); HEMOGLOBIN 9.2 g/dL (12.0-15.00); MEAN CELL VOLUME 87.4 fL (80.00-100.00); MEAN CORPUSCULAR HGB CONC 33.2 g/dl (32.0-36.0); PLATELET COUNT 194 K/uL (150-450); RED BLOOD COUNT 3.16 M/uL (4.00-6.00); RED CELL DISTRIBUTION WIDTH 15.4 % (11.5-14.5)
[2023-10-27 07:13] LABS: ALBUMIN 2.2 gm/dL (3.4-5.0); BILIRUBIN TOTAL 0.32 mg/dL (0.3-1.2); CALCIUM 7.2 mg/dL (8.5-10.1); CREATININE SERUM 1.07 mg/dL (0.55-1.02); GFR 50.41; GLOBULINA 3.6 G/DL (2.4-3.5); POTASSIUM 3.08 mEq/L (3.5-5.1); TOTAL PROTEIN 5.8 gm/dL (6.4-8.2)
[2023-10-27 10:12] LABS: ABG PH 7.454 (7.35-7.45); ABG PO2 48.8 mmHg (80-100); ABG pCO2 53.7 mmHg (35-45); BASE EXCESS 10.8 mmol/l; BICARBONATE 36.8 mmol/l (23-25); SaO2 87.4 %; Tco2 38.5 mmol/l; o2 21 %
[2023-10-27 10:13] LABS: allen test NO SATISFACTORY; puncture site RADIAL RIGHT
== END 2023-10-29 17:04 | disposition home or self-care (01) | DRG 179 ==
LOC: ER 23:10 → MEDI 10-24 11:51 → MEDJ 10-24 11:51
PROVIDERS: General Practice; Internal Medicine Infectious Disease; ADMIT Internal Medicine; ATTEND Internal Medicine
PROC: 3E0F7GC Introduction of Other Therapeutic Substance into Respiratory Tract, Via Natural or Artificial Opening (ICD-10-PCS; principal; 2023-10-24)
PROC: 02HV33Z Insertion of Infusion Device into Superior Vena Cava, Percutaneous Approach (ICD-10-PCS; 2023-10-24)
PROC: XW033E5 Introduction of Remdesivir Anti-infective into Peripheral Vein, Percutaneous Approach, New Technology Group 5 (ICD-10-PCS; 2023-10-24)
DX: J15.211 Pneumonia due to Methicillin susceptible Staphylococcus aureus (principal); J40 Bronchitis, not specified as acute or chronic; Z20.822 Contact with and (suspected) exposure to COVID-19; I10 Essential (primary) hypertension; E11.9 Type 2 diabetes mellitus without complications; C50.911 Malignant neoplasm of unspecified site of right female breast; G47.33 Obstructive sleep apnea (adult) (pediatric); Z92.21 Personal history of antineoplastic chemotherapy; Z79.4 Long term (current) use of insulin